=== PATIENT | male | born 1985 | race Asian ===

== ENCOUNTER 2019-04-17 19:45 | Emergency (ER) | payer BC ==
[~2019-04-17] VITALS: Ht 167.6 cm; Wt 73.9 kg
[2019-04-17 20:17] VITALS: Ht 167.6 cm; Wt 73.9 kg
[2019-04-17 22:26] LABS: microscopic required? YES; urine erythrocyte 1+ (NEGATIVE)
[2019-04-17 22:47] LABS: BASOPHIL % 0.5 % (0-2); PLATELET COUNT 209 x10^3mcL (130-400); RED CELL DISTRIBUTION WIDTH 12.2 % (11.5-14.5)
[2019-04-17 22:49] LABS: CALCIUM 7.7 mg/dL (8.5-10.1); CARBON DIOXIDE 26.2 mmol/L (21-32); CHLORIDE SERUM 104 mmol/L (98-107); CREATININE SERUM 1.1 mg/dL (0.7-1.3); GFR1 > 60 mL/min; GLUCOSE SERUM 172 mg/dL (74-106); POTASSIUM SERUM 3.4 mmol/L (3.5-5.1); SODIUM SERUM 138 mmol/L (136-145)
[2019-04-17 22:54] LABS: ALBUMIN 3.8 g/dL (3.4-5.0); ALKALINE PHOSPHATASE 120 U/L (46-116); BILIRUBIN TOTAL 0.7 mg/dL (0.20-1.00); TOTAL PROTEIN, SERUM 7.3 g/dL (6.4-8.2); URIC ACID 4.7 mg/dL (3.5-7.2)
[2019-04-17 23:08] LABS: AST/SGOT 15 U/L (15-37)
[2019-04-17 23:09] LABS: ALT/SGPT 45 U/L (16-63)
[2019-04-17 23:56] VITALS: BP 112/63
== END 2019-04-17 23:56 | disposition home or self-care (01) ==
LOC: ED 19:45 → EDSEX 19:45 → ED 23:56
PROVIDERS: Emergency Medicine
DX: N13.2 Hydronephrosis with renal and ureteral calculous obstruction (principal); F17.210 Nicotine dependence, cigarettes, uncomplicated; Z71.6 Tobacco abuse counseling
CPT/HCPCS: 36415; 99406; Q0092